=== PATIENT | female | born 1970 | race Caucasian/White ===

== ENCOUNTER 2025-06-24 18:14 | Inpatient (IN) | payer OTHER ==
[~2025-06-24] VITALS: Ht 160 cm; Wt 47.6 kg
[2025-06-24] MEDS ORDERED: Ketorolac Tromethamine 15mg Vial IV ONE (19:40)
[2025-06-24 20:45] LABS: BASOPHILS ABSOLUTE AUTO 0.06 K/mm3 (0.00-0.23); BASOPHILS PERCENT AUTO 0 % (0-2); EOSINOPHILS ABSOLUTE AUTO 0.02 K/mm3 (0.00-0.68); EOSINOPHILS PERCENT AUTO 0 % (0-6); Hematocrit 41.6 % (33.0-51.0); Hemoglobin 14.1 g/dL (11.5-16.0); IMMATURE GRAN ABSOLUTE AUTO 0.07 K/mm3 (0.00-0.10); IMMATURE GRAN PERCENT AUTO 0 % (0-1); LYMPHOCYTES ABSOLUTE AUTO 0.71 K/mm3 (0.84-5.20); LYMPHOCYTES PERCENT AUTO 4 % (21-46); MONOCYTES ABSOLUTE AUTO 0.61 K/mm3 (0.16-1.47); MONOCYTES PERCENT AUTO 3 % (4-13); Mean Corpuscular HGB Conc 33.9 g/dL (31.5-36.5); Mean Corpuscular Volume 86 fL (80-100); NEUTROPHILS ABSOLUTE AUTO 16.57 K/mm3 (1.96-9.15); NEUTROPHILS PERCENT AUTO 92 % (41-73); NRBC ABSOLUTE 0.00 K/mm3 (0.00-0.02); NRBC Auto 0.0 /100 WBC (0.0-0.2); Platelet Count 230 K/mm3 (150-400); RDW Coefficient Variation 13.5 % (11.7-14.2); RDW Standard Deviation 42.0 fL (35.1-46.3)
[2025-06-24] MEDS ORDERED: Ondansetron HCl 2 MG / ML 2ML Vial IV PRN (20:45)
[2025-06-24] MEDS ORDERED: HYDROcodone 5-APAP 325 TAB PO PRN (20:50)
[2025-06-24 20:57] LABS: Anion Gap 8.0 mmol/L (3-11); Blood Urea Nitrogen 13.0 mg/dL (8-24); CO2, Blood 25.0 mmol/L (21-32); Calcium, Blood 9.3 mg/dL (8.5-10.1); Chloride, Blood 109.0 mmol/L (98-108); Creatinine, Blood 0.68 mg/dL (0.40-1.00); Glucose, Blood 120.0 mg/dL (70-99); Potassium, Blood 3.9 mmol/L (3.5-5.5); Sodium, Blood 138.0 mmol/L (136-145)
[2025-06-24] MEDS ORDERED: CeFAZolin Sodium 2,000 MG in NS 100 ML IV SCH (21:25)
[2025-06-24] MEDS ORDERED: Tranexamic Acid 100 ML IV SCH (21:25)
[2025-06-24] MEDS ORDERED: Ketorolac Tromethamine 15mg Vial IV PRN (21:25)
[2025-06-24 22:07] LABS: Prothrombin Time Results 11.0 Sec (9.7-11.5)
[2025-06-25] VITALS (14 sets, daily range): BP systolic 100–169; BP diastolic 54–85
[2025-06-25 05:32] LABS: BASOPHILS ABSOLUTE AUTO 0.05 K/mm3 (0.00-0.23); BASOPHILS PERCENT AUTO 0 % (0-2); EOSINOPHILS ABSOLUTE AUTO 0.06 K/mm3 (0.00-0.68); EOSINOPHILS PERCENT AUTO 1 % (0-6); Hematocrit 37.5 % (33.0-51.0); Hemoglobin 12.6 g/dL (11.5-16.0); IMMATURE GRAN ABSOLUTE AUTO 0.02 K/mm3 (0.00-0.10); IMMATURE GRAN PERCENT AUTO 0 % (0-1); LYMPHOCYTES ABSOLUTE AUTO 1.82 K/mm3 (0.84-5.20); LYMPHOCYTES PERCENT AUTO 16 % (21-46); MONOCYTES ABSOLUTE AUTO 1.11 K/mm3 (0.16-1.47); MONOCYTES PERCENT AUTO 10 % (4-13); Mean Corpuscular HGB Conc 33.6 g/dL (31.5-36.5); Mean Corpuscular Volume 87 fL (80-100); NEUTROPHILS ABSOLUTE AUTO 8.06 K/mm3 (1.96-9.15); NEUTROPHILS PERCENT AUTO 73 % (41-73); NRBC ABSOLUTE 0.00 K/mm3 (0.00-0.02); NRBC Auto 0.0 /100 WBC (0.0-0.2); Platelet Count 210 K/mm3 (150-400); RDW Coefficient Variation 13.7 % (11.7-14.2); RDW Standard Deviation 43.7 fL (35.1-46.3)
[2025-06-25 06:12] LABS: Alanine Aminotransfer (ALT/SGP 18.0 U/L (12-78); Albumin, Blood 3.3 g/dL (3.4-5.0); Albumin/Globulin Ratio 1.3 (0.8-1.8); Anion Gap 8.0 mmol/L (3-11); Aspartate Aminotrans (AST/SGOT 13.0 U/L (12-37); Bilirubin, Total 0.8 mg/dL (0.1-1.0); Blood Urea Nitrogen 13.0 mg/dL (8-24); CO2, Blood 25.0 mmol/L (21-32); Calcium, Blood 8.3 mg/dL (8.5-10.1); Chloride, Blood 110.0 mmol/L (98-108); Creatinine, Blood 0.66 mg/dL (0.40-1.00); Globulin, Blood 2.5 g/dL (2.2-4.0); Glucose, Blood 107.0 mg/dL (70-99); Magnesium, Blood 2.0 mg/dL (1.6-2.4); Potassium, Blood 3.7 mmol/L (3.5-5.5); Sodium, Blood 139.0 mmol/L (136-145); Total Protein, Blood 5.8 g/dL (6.4-8.2)
[2025-06-25] MEDS ORDERED: Bupivacaine 0.5% HCl 5 MG/ML 30MLVIAL ONE (07:15)
[2025-06-25] MEDS ORDERED: FentaNYL Citrate 50 MCG/ML 2 ML Injection ONE ×2 (07:21→07:49)
[2025-06-25] MEDS ORDERED: Ondansetron HCl 2 MG / ML 2ML Vial ONE (07:39)
[2025-06-25] MEDS ORDERED: Dexamethasone Sod Phos 10 MG/ML 1ML VIAL ONE (07:39)
[2025-06-25] MEDS ORDERED: CeFAZolin Sodium 1000 mg Vial ONE (07:40)
[2025-06-25] MEDS ORDERED: Tranexamic Acid 100 ML IV ONE (07:43)
--- NOTE | 2025-06-25 07:44 | NUR ---
06/25/25 0744 Pretty Merida PT ENTERED OR WITH BOONE CATHETER
[2025-06-25] MEDS ORDERED: Ondansetron HCl 2 MG / ML 2ML Vial IV PRN (07:50)
[2025-06-25] MEDS ORDERED: HYDROmorphone HCl/Pf 1MG SYR IV PRN ×2 (07:50→07:55)
[2025-06-25] MEDS ORDERED: FentaNYL Citrate 50 MCG/ML 2 ML Injection IV PRN (07:50)
[2025-06-25] MEDS ORDERED: Albuterol 2.5 MG/3 ML VIAL INH PRN (07:55)
[2025-06-25] MEDS ORDERED: Metoclopramide HCl 5MG / ML 2ML Vial IV PRN (07:55)
[2025-06-25] MEDS ORDERED: Ketorolac Tromethamine 30mg Vial ONE (08:10)
[2025-06-25] MEDS ORDERED: Sugammadex Sodium 200 MG/2ML SDV (100 MG/ML) ONE (08:10)
[2025-06-25] MEDS ORDERED: CeFAZolin Sodium 2,000 MG in NS 100 ML IV SCH (08:27)
[2025-06-25] MEDS ORDERED: HYDROmorphone HCl/Pf 1MG SYR ONE (08:39)
--- NOTE | 2025-06-25 18:18 | NUR ---
SHIFT SUMMARY A/OX4, POD 0 L. HIP NAILING. DENIES PAIN OR SOB. WORKED WITH PT TODAY. 1P ASSIST WITH FWW AND GB. VSS, NO ACUTE CHANGES AT THIS TIME
[2025-06-26 00:01] VITALS: BP 123/95
--- NOTE | 2025-06-26 04:25 | NUR ---
SHIFT SUMMARY NOC. PT POD 1 FOR LEFT HIP NAILING. PT A/O X4 AND CALLS APPROPRIATELY. PT AMBULATES TO BR WITH 1 PERSON ASSIST, FWW, AND GB. PT VOIDING URINE. PT MEDICATED FOR PAIN WITH REPORTED RELIEF OF SX. AQUACEL DRESSINGS C/D/I ASIDE FROM SCANT SS DRAINAGE. PT TOLERATING PO INTAKE. CALL LIGHT IN REACH.
[2025-06-26 05:00] VITALS: BP 124/57
[2025-06-26 05:22] LABS: Hematocrit 31.3 % (33.0-51.0); Hemoglobin 10.5 g/dL (11.5-16.0); Mean Corpuscular HGB Conc 33.5 g/dL (31.5-36.5); Mean Corpuscular Volume 89 fL (80-100); NRBC ABSOLUTE 0.00 K/mm3 (0.00-0.02); NRBC Auto 0.0 /100 WBC (0.0-0.2); Platelet Count 188 K/mm3 (150-400); RDW Coefficient Variation 13.7 % (11.7-14.2); RDW Standard Deviation 44.9 fL (35.1-46.3)
[2025-06-26 05:47] LABS: Anion Gap 5.0 mmol/L (3-11); Blood Urea Nitrogen 11.0 mg/dL (8-24); CO2, Blood 30.0 mmol/L (21-32); Calcium, Blood 8.5 mg/dL (8.5-10.1); Chloride, Blood 108.0 mmol/L (98-108); Creatinine, Blood 0.7 mg/dL (0.40-1.00); Glucose, Blood 109.0 mg/dL (70-99); Potassium, Blood 3.6 mmol/L (3.5-5.5); Sodium, Blood 139.0 mmol/L (136-145)
[2025-06-26 07:09] VITALS: BP 108/58; BP 111/47
[2025-06-26] MEDS ORDERED: HYDR1TAB94 PO (11:55)
[2025-06-26] MEDS ORDERED: Aspirin325 MG PO (11:58)
--- NOTE | 2025-06-26 12:19 | NUR ---
ASSUMED CARE OF PT @0700 AXO4. UP IN CHAIR UPON ASSUMPTION OF CARE. VSS. L HIP AQUACELS X3 CDI WITH MINUTE SHADOWING. UP WITH WALKER, SBA, FWW - TOLERATING WELL. TOLERATING PO INTAKE WELL. VOIDING. DENYING NEED FOR PAIN MEDICATIONS. PHYSICAL THERAPY WORKED WITH PT - APPROVED OF DC WITH OUTPT PHYSICAL THERAPY. DAUGHTER AT BEDSIDE. DC ORDERS RECEIVED. PT/DAUGHTER EDUCATED. AQUACEL DRESSING RREPLACEMENTS PROVIDED. IV PULLED. VSS. DC'D OUT OF ROOM @1225 WITH DAUGHTER.
== END 2025-06-26 12:25 | disposition home or self-care (01) | DRG 482 ==
LOC: ER 18:14 → SURS 20:44 → ERHOLD 20:44 → SURS 06-25 09:08
PROVIDERS: Internal Medicine; Orthopaedic Surgery; Student in an Organized Health Care Education/Training Program; ADMIT Student in an Organized Health Care Education/Training Program
PROC: 3E03329 Introduction of Other Anti-infective into Peripheral Vein, Percutaneous Approach (ICD-10-PCS; 2025-06-24)
PROC: 0QS736Z Reposition Left Upper Femur with Intramedullary Internal Fixation Device, Percutaneous Approach (ICD-10-PCS; principal; 2025-06-25 07:00)
DX: S72.142A Displaced intertrochanteric fracture of left femur, initial encounter for closed fracture (principal); F17.210 Nicotine dependence, cigarettes, uncomplicated; W01.198A Fall on same level from slipping, tripping and stumbling with subsequent striking against other object, initial encounter; Y93.K1 Activity, walking an animal; Z88.0 Allergy status to penicillin; Z71.6 Tobacco abuse counseling
CPT/HCPCS: 36415; 51702; 73502; 73552; 80048; 80053; 83735; 85025; 85027; 85610; 85730; 93005; 93010; 96374; 97110; 97116; 97161; 97530; 99284-25; A9270; C1713; C1769; J0690; J1100; J1171; J1885; J2405; J2704; J3010; J7120